=== PATIENT | male | born 2000 | race Caucasian/White ===

== ENCOUNTER 2019-04-21 02:13 | Emergency (ER) | payer OTHER ==
[2019-04-21 02:26] VITALS: BP 132/74; PULSE 100; TEMP 98.2; BMI 28.5
--- NOTE | 2019-04-21 02:59 | PDOC ---
History of Present Illness - General Chief Complaint: Laceration Stated Complaint: CHIN LAC Time Seen by Provider: 04/21/19 02:24 - History of Present Illness Initial Comments: This 19-year-old with no significant past medical history was brought in by ambulance by request of the [place] [employer]: The patient was at the [place] train station after disembarking the train accompanied by a group of friends. Patient admits to drinking a large amount of alcohol while partying in [facility]. While at the train station, the patient admits urinating in the bushes. He lost his balance and fell forward, striking his chin. Patient remembers details of the fall and states there was no LOC. He did sustain a small laceration on the left side of his chin and he was brought to the ER for evaluation. 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 CLAV[facility]LE 2012 SEC. TO FX) - Immunization History Immunization Up to Date: Yes - Suicide/Smoking/Psychosocial Hx Smoking Status: No Smoking History: Never smoked Number of Cigarettes Smoked Daily: 0 Hx Alcohol Use: No Drug/Substance Use Hx: No Substance Use Type: None Hx Substance Use Treatment: No Review of Systems - Review of Systems Able to Perform ROS?: Yes Comments:: 12 point review of systems is negative except for what is noted in the history of present illness *Physical Exam - Vital Signs Last Vital Signs Temp Pulse Resp BP Pulse Ox 98.2 F 100 H 16 132/74 98 04/21/19 02:15 04/21/19 02:15 04/21/19 02:15 04/21/19 02:15 04/21/19 02:15 - Physical Exam Comments: GENERAL:Young adult male, alert and oriented X 3, in no acute distress; speech minimally slurred but fluent HEAD: Normal with no signs of trauma. EYES: PERRLA, EOMI, sclera anicteric, conjunctiva clear. ENT: Ears normal, nares patent, oropharynx clear without exudates. Dry mucous membranes 0.5 cm superficial, non-bleeding abrasion, Left side of chin no wounds present inside mouth; no loosening of teeth, no malocclusion of the jaw NECK: Normal range of motion, supple without lymphadenopathy, JVD, or masses. LUNGS: Breath sounds equal, clear to auscultation bilaterally. No wheezes, and no crackles. HEART:Regular rate and rhythm, normal S1 and S2 without murmur, rub or gallop. ABDOMEN:.normal bowel sounds No guarding,tenderness or rebound.No masses No distention. EXTREMITIES: Normal range of motion, no edema. No clubbing or cyanosis. No erythema, or tenderness. NEUROLOGICAL: Cranial nerves II through XII grossly intact. Normal speech. No focal neurological deficits. Gait normal without ataxia MUSCULOSKELETAL: Back non-tender to palpation, no CVA tenderness Progress Note - Progress Note Progress Note: As noted above, this otherwise healthy 19-year-old man arrives by ambulance from [facility], where he had fallen while urinating after getting off a train there. He sustained a small laceration of the chin when he fell but there was no apparent loss of consciousness patient has no complaints. On exam, the patient is alert and oriented 3. Exam reveals small, nonbleeding abrasion of the chin without evidence of acute fracture/dislocation or other significant injury of his face/neck. Neurologic exam is unremarkable and patient is able to walk without ataxia. Patient's mother has arrived in the emergency room and can bring her son home. Patient will be discharged in the company of his mother with instructions to apply bacitracin to the wound daily for the next 5 days. He should drink plenty of fluids over the next 24 hours and use Tylenol as needed for pain. *DC/Admit/Observation/Transfer Diagnosis at time of Disposition: Superficial laceration of face Alcohol intoxication Qualifiers: Complication of substance-induced condition: uncomplicated Qualified Code(s): F10.920 - Alcohol use, unspecified with intoxication, uncomplicated - Discharge Dispostion Disposition: HOME Condition at time of disposition: Stable - Referrals - Patient Instructions Printed Discharge Instructions: DI for Minor Laceration Additional Instructions: Bacitracin or Neosporin ointment to laceration daily for the next 5 days Drink plenty of water over the next 24 hours Tylenol as needed for headache Return to ER or see your doctor if you have pain/swelling an area of laceration - Post Discharge Activity
== END 2019-04-21 03:07 | disposition home or self-care (01) ==
LOC: FER 02:13
DX: S01.81XA Laceration without foreign body of other part of head, initial encounter (principal); W18.39XA Other fall on same level, initial encounter; Y93.89 Activity, other specified; Y92.89 Other specified places as the place of occurrence of the external cause; F10.920 Alcohol use, unspecified with intoxication, uncomplicated
CPT/HCPCS: 99281-25